=== PATIENT | female | born 1965 | race Caucasian/White ===

== ENCOUNTER → 2021-06-11 | Outpatient (CLI) | payer MEDICARE, MEDICAID ==
[~2021-06-11] MED LIST: ABILIFY 15MG TA15 MG PO; ASPIRIN 81M81 MG/TA2 PO; ATIVAN 1MG T1 MG/TAB PO; ATIVAN2 MG PO; BLUE-EMU LIDOC1 EACH TP; CLARITIN 1010 MG/TAB PO; CLEOCIN HCL300 MG PO; CLOZAPINE50 MG PO; COLESTID 1GM1 G PO; CRESTOR 10MG10 MG PO; EPA FISH OIL1 SGL PO; FARXIGA10 PO; GAS RELIEF125 MG PO; GLUCOPHAGE500 MG/TAB PO; IMODIUM 2MG CAPS2 MG PO; LAC-HYDRIN121 TP; LANTUS SOLOS100 U/ML SQ; LANTUS100 U/ML SQ; LASIX 40MG TABL40 MG PO; LOPRESSOR 225 MG/TAB PO; MIRALAX PA17 GM/Dose PO; MOBIC15 MG PO; MOTRIN 600600 MG/TAB PO; MYSOLINE 5050 MG/TAB PO; NAPROSYN500 MG PO; NEURONTIN100 MG/CAP PO; NOVOLOG 100U100 U/M1 SQ; NYAMYC100000 U/G TP; NYSTATIN POWDER30 GM TOP; OMEGA-3 1000 MG1 CAP PO; OMNICEF 300MG300 MG PO; OZEMPIC0.25 MG/0. SQ; PROZAC40 MG PO; RANEXA 500MG T500 MG PO; REMERON30 MG PO; SINGULAIR 110 MG/TAB PO; ULTRAM 50MG TAB50 MG PO; VITAMIN B11000 MCG/M IM; VITAMIND3 5000 PO; VOLTAREN GEL 1%1 TU TP; ZOFRAN 4MG T4 MG/TAB PO
[2021-06-11 11:02] LABS: BASO % 0.5 % (0.0-2.0); GRAN # 1.9 K/mm3 (1.4-6.5); GRAN % 49.8 % (42.2-75.2); HEMATOCRIT 34.7 % (37.0-47.0); HEMOGLOBIN 11.7 g/dl (12.5-16.0); LYMPH # 1.6 K/mm3 (1.2-3.4); LYMPH % 41.9 % (20.0-51.0); MEAN CELL VOLUME 95 fl (80.0-100.0); MEAN CORPUSCULAR HEMOGLOBIN 32 pg (27-31); MEAN CORPUSCULAR HGB CONC 34 g/dl (33.0-37.0); MONO # 0.3 K/mm3 (0.1-0.6); MONO % 7.5 % (1.7-9.3); PLATELET COUNT 190 K/mm3 (130-400); RED BLOOD COUNT 3.66 M/mm3 (4.10-5.30); REDCELL DISTRIBUTION WIDTH-CV 14.1 % (11.5-14.5)
== END ==
LOC: ZLAB.STJ 10:40
PROVIDERS: Internal Medicine
DX: E11.9 Type 2 diabetes mellitus without complications (principal); Z79.899 Other long term (current) drug therapy

== ENCOUNTER 2021-06-18 22:49 | Inpatient (IN) | payer MEDICARE, MEDICAID ==
[~2021-06-18] VITALS: Ht 175.3 cm; Wt 161.4 kg
[~2021-06-18 22:49] MED LIST changes: -BLUE-EMU LIDOC1 EACH TP; -IMODIUM 2MG CAPS2 MG PO; -LANTUS100 U/ML SQ; -MIRALAX PA17 GM/Dose PO; -NEURONTIN100 MG/CAP PO; -NYAMYC100000 U/G TP; -OMEGA-3 1000 MG1 CAP PO; -OMNICEF 300MG300 MG PO; -OZEMPIC0.25 MG/0. SQ; -ZOFRAN 4MG T4 MG/TAB PO
[2021-06-18 23:40] LABS: BASO % 0.2 % (0.0-2.0); GRAN # 4.2 K/mm3 (1.4-6.5); GRAN % 86.8 % (42.2-75.2); HEMATOCRIT 36.2 % (37.0-47.0); HEMOGLOBIN 12.5 g/dl (12.5-16.0); LYMPH # 0.6 K/mm3 (1.2-3.4); LYMPH % 11.5 % (20.0-51.0); MEAN CELL VOLUME 93 fl (80.0-100.0); MEAN CORPUSCULAR HEMOGLOBIN 32 pg (27-31); MEAN CORPUSCULAR HGB CONC 35 g/dl (33.0-37.0); MEAN PLATELET VOLUME 9.5 fl (7.4-10.4); MONO # 0.1 K/mm3 (0.1-0.6); MONO % 1.3 % (1.7-9.3); PLATELET COUNT 161 K/mm3 (130-400); RED BLOOD COUNT 3.89 M/mm3 (4.10-5.30)
[2021-06-18 23:49] LABS: COLLECTION METHOD CLEAN CATCH
[2021-06-18 23:52] LABS: ALBUMIN 4.2 gm/dL (3.5-5.0); BILIRUBIN,TOTAL 3.7 mg/dL (0.2-1.2); CALCIUM 9.3 mg/dL (8.4-10.2); CREATININE, serum 1.02 mg/dL (0.57-1.11); POTASSIUM 3.8 mmol/L (3.5-4.5); TOTAL PROTEIN 6.6 gm/dL (6.2-8.1)
[2021-06-18 23:58] LABS: MUCOUS Present (NOT PRESENT); PH 6 (5-8); URINE APPEARANCE Hazy (CLEAR/HAZY); URINE BACTERIA Moderate /hpf (NONE SEEN); URINE BILIRUBIN Negative (NEGATIVE); URINE BLOOD 2+ (NEGATIVE); URINE COLOR Yellow (YELLOW); URINE GLUCOSE 3+ (NEGATIVE); URINE KETONE Negative (NEGATIVE); URINE LEUKOCYTE ESTERASE 2+ (NEGATIVE); URINE NITRATE Negative (NEGATIVE); URINE PROTEIN(semi-quant) Negative (NEGATIVE); URINE UROBILINOGEN Negative (NEGATIVE)
[2021-06-19 00:11] LABS: TROPONIN-I 0.01 ng/mL (0.00-0.033); TSH w REFLEX 4.682 uIU/mL (0.350-4.940)
[2021-06-19 03:00] VITALS: BP 107/65; PULSE 91; TEMP 99.6
[2021-06-19] MEDS ORDERED: MIRALAX PA17 GM/Dose PO (03:44)
[2021-06-19] MEDS ORDERED: NOVOLOG 100U100 U/M1 SQ (03:44)
[2021-06-19] MEDS ORDERED: OZEMPIC0.25 MG/0. SQ (03:44)
[2021-06-19] MEDS ORDERED: VITAMIN B11000 MCG/M IM (03:45)
[2021-06-19] MEDS ORDERED: ULTRAM 50MG TAB50 MG PO (03:45)
[2021-06-19] MEDS ORDERED: VOLTAREN GEL 1%1 TU TP (03:45)
[2021-06-19] MEDS ORDERED: COLESTID 1GM1 G PO (03:45)
[2021-06-19] MEDS ORDERED: LANTUS100 U/ML SQ (03:46)
[2021-06-19] MEDS ORDERED: ZOFRAN 4MG T4 MG/TAB PO (03:46)
[2021-06-19] MEDS ORDERED: NEURONTIN100 MG/CAP PO (03:47)
[2021-06-19] MEDS ORDERED: IMODIUM 2MG CAPS2 MG PO (03:47)
[2021-06-19] MEDS ORDERED: NYAMYC100000 U/G TP (03:48)
[2021-06-19] MEDS ORDERED: GAS RELIEF125 MG PO (03:48)
[2021-06-19] MEDS ORDERED: NAPROSYN500 MG PO (03:50)
[2021-06-19] MEDS ORDERED: MYSOLINE 5050 MG/TAB PO (03:50)
[2021-06-19] MEDS ORDERED: PROZAC40 MG PO (03:50)
[2021-06-19] MEDS ORDERED: OMEGA-3 1000 MG1 CAP PO (03:51)
[2021-06-19] MEDS ORDERED: VITAMIND3 5000 PO (03:51)
[2021-06-19] MEDS ORDERED: CLARITIN 1010 MG/TAB PO (03:52)
[2021-06-19] MEDS ORDERED: ATIVAN2 MG PO (03:52)
[2021-06-19] MEDS ORDERED: ASPIRIN 81M81 MG/TA2 PO (03:53)
[2021-06-19] MEDS ORDERED: GLUCOPHAGE500 MG/TAB PO (03:54)
[2021-06-19] MEDS ORDERED: LOPRESSOR 225 MG/TAB PO (03:54)
[2021-06-19] MEDS ORDERED: RANEXA 500MG T500 MG PO (03:54)
[2021-06-19] MEDS ORDERED: FARXIGA10 PO (03:54)
[2021-06-19] MEDS ORDERED: SINGULAIR 110 MG/TAB PO (03:54)
[2021-06-19] MEDS ORDERED: REMERON30 MG PO (03:55)
[2021-06-19] MEDS ORDERED: ABILIFY 15MG TA15 MG PO (03:55)
[2021-06-19] MEDS ORDERED: CRESTOR 10MG10 MG PO (03:55)
[2021-06-19] MEDS ORDERED: CLOZAPINE50 MG PO (03:55)
[2021-06-19] MEDS ORDERED: LASIX 40MG TABL40 MG PO (03:55)
--- NOTE | 2021-06-19 06:45 | NUR ---
Report received, assumed care for day shift.
--- NOTE | 2021-06-19 07:23 | NUR ---
Patient arrived to the surgical flood at approximately 0445. Patient complained of back and flank pain as well as dark colored urine. Hospitalist in to the see that patient, orders entered. Abdominal CT was performed at 0520, confirmed kidney stone. Urology consult order entered. At 0550 tele called to inform this nurse that the patient was having bigeminal PVC's. Hospitalist was notified and ordered a lab draw for magnesium. Patient had complaints of pain, PRN tramadol was administered. Full body assessment and medication administration completed without difficulty. Patient is A&Ox3 pleasant. Patient had no other complaints throughout the shift. Call light within reach.
[2021-06-19 07:39] VITALS: BP 92/53; PULSE 80; TEMP 98.1
--- NOTE | 2021-06-19 08:00 | NUR ---
Assessment complete. A&Ox3. Denies pain/shortness of breath. Rating pain to back 7/10-described as constant ache-medications per order. Plan of care discussed for this shift to include meds/pain control/VS/NPO until Dr Augustine visits/calling for questions/concerns. Verbalizes understanding. Call light in reach. Will monitor.
--- NOTE | 2021-06-19 11:00 | NUR ---
Soaking Pit Operator contacted Jaime at [facility] and confirmed patient is a nursing home care resident. EMMIE faxed clinical updates. EMMIE also requested copy of patient's DPOA-HC. Jaime faxed EMMIE a copy, which EMMIE placed on patient's chart. DPOA-HC designates patient's brother, Mateo (ph#[phone]). EMMIE met with patient to discuss discharge planning. [facility] and sees Dr[facility] Metzger for primary care. [facility] manages patient's medications and patient reports she uses oxygen and no other DME. Patient receives assistance with ADLS as needed and plans to return to [facility] upon discharge. EMMIE contacted patient's DPOA-HC, Mateo and reviewed discharge plan. Discharge Plan: [facility]
--- NOTE | 2021-06-19 11:35 | NUR ---
Notified by PCT that patient is shaking uncontrolably. This nurse to room and patient noted to be shaking/shivering/tremors. States "I am cold and cant quit shaking. " VS currently stable. O2 saturation WNL on 3L/NC. Blood sugar 130s. States "I have this happen all the time and they give me Ativan for it." Noted to have Ativan ordered for anxiety. Given at this time per dr order. K Pad also given for lower back pain. Encouraged to slow breathing down as well-tachypneic. Verbalizes understanding.
[2021-06-19 11:36] VITALS: BP 132/90; PULSE 103; TEMP 98.8
--- NOTE | 2021-06-19 12:29 | NUR ---
Up to bathroom at this time. Patient states anxiety is better but C/O being dizzy. States morphine doesnt sit well with her-was asked prior to admin and said she received it before with no issues. Will hold off on using morphine for pain at this time.
--- NOTE | 2021-06-19 13:00 | NUR ---
Dr Denson and team at [facility] for rounds.
--- NOTE | 2021-06-19 13:33 | NUR ---
Initial visit; Patient thanked [employer] for looking in on her and keeping her in [employer]'s prayers.
[2021-06-19 15:24] VITALS: BP 119/94; PULSE 105; TEMP 102.3
--- NOTE | 2021-06-19 15:25 | NUR ---
PCT reports temp of 102.5. Blankets removed and tylenol given. Will reassess in one hour.
[2021-06-19 16:30] VITALS: TEMP 100
--- NOTE | 2021-06-19 18:36 | NUR ---
Called with c/o pain to lower back-rating pain 7/10 on pain scale-tramadol given per dr order. Will monitor.
--- NOTE | 2021-06-19 20:00 | NUR ---
PATIENT IS A&O. NOTED TEMP OF 100.0 AND HR OF 105. PATIENT ADMITED FOR UROSEPSIS. PATIENT ASYMPTOMATIC. GAVE PRN TYLENOL WITH HS MEDS. ALL OTHER VSS ON TELE. IV FLUIDS AND IV ROCEPHIN INFUSING INTO RIGHT HAND IV VIA PUMP. NO C/O N/V. TOLERATING ADA DIET. BS WAS 148, NO SSI REQUIRED. PATIENT REQUESTING ATIVAN BEFORE BED, GIVEN. HEAD TO TOE ASSESSMENT COMPLETE. NO OTHER NEEDS AT THIS TIME. PATIENT INDEPENDENT IN ROOM. CALL LIGHT IN REACH. TURNED LIGHTS DOWN. PATIENT GOING TO BED.
[2021-06-19 20:52] VITALS: BP 144/67; PULSE 82; TEMP 98.4
[2021-06-20] VITALS (7 sets, daily range): BP systolic 104–140; BP diastolic 43–65; PULSE 80–106; TEMP 97.8–99.7
--- NOTE | 2021-06-20 06:45 | NUR ---
awake resting in bed, bedside shift report received from RITO Garcia
[2021-06-20 06:51] LABS: BASO % 0.3 % (0.0-2.0); GRAN # 5.4 K/mm3 (1.4-6.5); GRAN % 79.1 % (42.2-75.2); HEMOGLOBIN 10.9 g/dl (12.5-16.0); LYMPH # 0.9 K/mm3 (1.2-3.4); LYMPH % 13.5 % (20.0-51.0); MEAN CORPUSCULAR HEMOGLOBIN 32 pg (27-31); MEAN CORPUSCULAR HGB CONC 33 g/dl (33.0-37.0); MEAN PLATELET VOLUME 10.3 fl (7.4-10.4); MONO # 0.4 K/mm3 (0.1-0.6); MONO % 6.5 % (1.7-9.3); PLATELET COUNT 150 K/mm3 (130-400); RED BLOOD COUNT 3.38 M/mm3 (4.10-5.30); REDCELL DISTRIBUTION WIDTH-CV 14.8 % (11.5-14.5)
--- NOTE | 2021-06-20 07:11 | NUR ---
c/o back pain, lidocaine patch placed and medicated with tramadol 50mg po, full assessment completed, see interventions for further info, breakfast has been ordered, denies other needs
[2021-06-20 07:13] LABS: ALBUMIN 3.3 gm/dL (3.5-5.0); BILIRUBIN,TOTAL 3.2 mg/dL (0.2-1.2); CALCIUM 8.6 mg/dL (8.4-10.2); CREATININE, serum 1.11 mg/dL (0.57-1.11); POTASSIUM 3.7 mmol/L (3.5-4.5); TOTAL PROTEIN 6.3 gm/dL (6.2-8.1)
[2021-06-20 07:24] LABS: HEMATOCRIT 33.1 % (37.0-47.0)
[2021-06-20 07:26] LABS: MEAN CELL VOLUME 98 fl (80.0-100.0)
--- NOTE | 2021-06-20 09:29 | NUR ---
sitting up on side of bed, physical therapy in to work with patient, ambulated out in [place], during walk in [place] telemetry called and stated her heart rate was 140s, now she is back in bed and heart rate is high 90s, she was also c/o some shaking and asked to have her temp check, will follow up with this
--- NOTE | 2021-06-20 09:45 | NUR ---
resting in bed, has minimal shaking, Temp 100.9, will continue to monitor
--- NOTE | 2021-06-20 10:03 | NUR ---
RUBBER MILL TENDER in and assisting patient with getting up and into shower, medicated with tylenol 650mg po for Temp 100.9 and c/os headache
--- NOTE | 2021-06-20 10:33 | NUR ---
was up to shower and tolerated well, back in bed and telemetry on and IV fluids infusing, will rest now, heart rate 110s
--- NOTE | 2021-06-20 12:30 | NUR ---
resting in bed with eyes closed, awakens easily, continues to c/o some back pain, denies needs
--- NOTE | 2021-06-20 13:09 | NUR ---
Floor Tiling Professional faxed clinical updates to [facility].
--- NOTE | 2021-06-20 16:45 | NUR ---
resting in bed and appears to be sleeping, eyes closed, resp quiet and easy
--- NOTE | 2021-06-20 17:00 | NUR ---
c/o headache and medicated with tylenol 650mg, denies other needs
--- NOTE | 2021-06-20 18:50 | NUR ---
bedside shift report given to RITO Garcia
--- NOTE | 2021-06-20 20:00 | NUR ---
PATIENT IS A&O. VSS ON TELE. 02 AT 3L PER NC WITH SATS IN MID 90'S WHICH IS HER BASELINE. PATIENT C/O PAIN, GAVE PRN ULTRAM & TYLENOL PER REQUEST. PATIENT ALSO ASKING FOR HER PRN ATIVAN, GIVEN. NO C/O N/V. RIGHT HAND IV TO INT. TOLERATING ADA DIET. BS IS 104, NO SSI REQUIRED. HEAD TO TOE ASSESSMENT COMPLETE. CALL LIGHT IN REACH.
[2021-06-21 03:56] VITALS: BP 126/45; PULSE 46; TEMP 98.6
[2021-06-21 07:40] VITALS: BP 121/99; PULSE 95; TEMP 98.3
--- NOTE | 2021-06-21 08:32 | NUR ---
Pt assessment complete. Pt is sitting up in bed upon entry, she is A/O x4. Her breathing is even and unlabored on 3L O2 via NC. Pt states she chronically wears 3L O2 via NC during the day. Denies any increased SOB. Pt reports pain 10/10 to back, but would like to try Lidocaine patch before taking more PO pain medications. Denies any N/V, reports two loose stools overnight. No needs at this time. Call light within reach.
[2021-06-21 09:16] LABS: BASO % 0.3 % (0.0-2.0); GRAN # 2.9 K/mm3 (1.4-6.5); GRAN % 74.6 % (42.2-75.2); LYMPH # 0.8 K/mm3 (1.2-3.4); LYMPH % 19.9 % (20.0-51.0); MEAN CELL VOLUME 100 fl (80.0-100.0); MEAN CORPUSCULAR HGB CONC 32 g/dl (33.0-37.0); MEAN PLATELET VOLUME 10.1 fl (7.4-10.4); MONO # 0.2 K/mm3 (0.1-0.6); MONO % 4.9 % (1.7-9.3); PLATELET COUNT 146 K/mm3 (130-400); RED BLOOD COUNT 3.11 M/mm3 (4.10-5.30); REDCELL DISTRIBUTION WIDTH-CV 14.9 % (11.5-14.5)
[2021-06-21 09:23] LABS: HEMOGLOBIN 9.9 g/dl (12.5-16.0); MEAN CORPUSCULAR HEMOGLOBIN 32 pg (27-31)
[2021-06-21 09:40] LABS: BILIRUBIN,TOTAL 1.4 mg/dL (0.2-1.2); CALCIUM 8.5 mg/dL (8.4-10.2); CREATININE, serum 0.94 mg/dL (0.57-1.11); POTASSIUM 3.8 mmol/L (3.5-4.5); TOTAL PROTEIN 6.1 gm/dL (6.2-8.1)
[2021-06-21] MEDS ORDERED: BLUE-EMU LIDOC1 EACH TP (09:56)
[2021-06-21] MEDS ORDERED: OMNICEF 300MG300 MG PO (10:01)
[2021-06-21 11:54] VITALS: BP 129/54; TEMP 101.4
[2021-06-21 12:03] VITALS: TEMP 98.7
[2021-06-21 12:13] VITALS: BP 129/54; PULSE 95; TEMP 98.7
--- NOTE | 2021-06-21 13:23 | NUR ---
Report given to [facility] nurse. Discharge paperwork sent with staff. IV to R hand dc'd catheter tip intact. Pt wheeled out by [facility] staff member at this time.
--- NOTE | 2021-06-21 15:15 | NUR ---
SW informed that patient would be discharging on this day and would need assistance with setting up transporation to [facility]. SW contacted facility to staff to assist, dc documenation sent and transporation setup for 1pm on this day. Nothing further.
== END 2021-06-21 13:23 | DRG 871 ==
LOC: COL.ER 22:49 → SURG 06-19 01:59
PROVIDERS: Emergency Medicine; Nurse Practitioner Family; ADMIT Internal Medicine
DX: A41.9 Sepsis, unspecified organism (principal); I50.33 Acute on chronic diastolic (congestive) heart failure; N39.0 Urinary tract infection, site not specified; I42.1 Obstructive hypertrophic cardiomyopathy; J96.11 Chronic respiratory failure with hypoxia; Z68.42 Body mass index [BMI] 45.0-49.9, adult; R65.20 Severe sepsis without septic shock; I11.0 Hypertensive heart disease with heart failure; G89.29 Other chronic pain; M54.50 Low back pain, unspecified; R25.1 Tremor, unspecified; J44.9 Chronic obstructive pulmonary disease, unspecified; E03.9 Hypothyroidism, unspecified; F31.9 Bipolar disorder, unspecified; N20.0 Calculus of kidney; G47.33 Obstructive sleep apnea (adult) (pediatric); E66.01 Morbid (severe) obesity due to excess calories; F25.9 Schizoaffective disorder, unspecified; F41.9 Anxiety disorder, unspecified; E78.5 Hyperlipidemia, unspecified; E11.40 Type 2 diabetes mellitus with diabetic neuropathy, unspecified; B96.20 Unspecified Escherichia coli [E. coli] as the cause of diseases classified elsewhere; N83.9 Noninflammatory disorder of ovary, fallopian tube and broad ligament, unspecified; Z79.82 Long term (current) use of aspirin; Z79.4 Long term (current) use of insulin; Z88.0 Allergy status to penicillin; Z87.891 Personal history of nicotine dependence; Z23 Encounter for immunization
CPT/HCPCS: 99223-AI; 99232-AI; 99239; J0696; J1650; J1815; J2060; J2270; J3475; J7030; J7120; Q9967

== ENCOUNTER → 2021-06-30 | Outpatient (CLI) | payer MEDICARE, MEDICAID ==
[~2021-06-30] MED LIST changes: +BLUE-EMU LIDOC1 EACH TP; +CIPRO 500MG TA500 MG PO; +IMODIUM 2MG CAPS2 MG PO; +LANTUS100 U/ML SQ; +MIRALAX PA17 GM/Dose PO; +NEURONTIN100 MG/CAP PO; +NYAMYC100000 U/G TP; +OMEGA-3 1000 MG1 CAP PO; +OMNICEF 300MG300 MG PO; +OZEMPIC0.25 MG/0. SQ; +ZOFRAN 4MG T4 MG/TAB PO
[2021-06-30 16:31] LABS: BASO % 0.1 % (0.0-2.0); GRAN # 6.4 K/mm3 (1.4-6.5); GRAN % 72.6 % (42.2-75.2); HEMOGLOBIN 10.6 g/dl (12.5-16.0); LYMPH # 1.8 K/mm3 (1.2-3.4); LYMPH % 20.1 % (20.0-51.0); MEAN CELL VOLUME 93 fl (80.0-100.0); MEAN CORPUSCULAR HEMOGLOBIN 32 pg (27-31); MEAN CORPUSCULAR HGB CONC 34 g/dl (33.0-37.0); MEAN PLATELET VOLUME 9.6 fl (7.4-10.4); MONO # 0.6 K/mm3 (0.1-0.6); MONO % 6.5 % (1.7-9.3); PLATELET COUNT 288 K/mm3 (130-400); RED BLOOD COUNT 3.36 M/mm3 (4.10-5.30); REDCELL DISTRIBUTION WIDTH-CV 14.1 % (11.5-14.5)
[2021-06-30 16:32] LABS: HEMATOCRIT 31.1 % (37.0-47.0)
== END ==
LOC: ZLAB.STJ 15:37
PROVIDERS: Psychiatry & Neurology Psychiatry
DX: Z79.899 Other long term (current) drug therapy (principal)

== ENCOUNTER 2021-07-07 14:54 | Observation (INO) | payer MEDICARE, MEDICAID ==
[~2021-07-07] VITALS: Ht 182.9 cm; Wt 152.3 kg
[~2021-07-07 14:54] MED LIST changes: -CIPRO 500MG TA500 MG PO
[2021-07-07 15:36] LABS: COLLECTION METHOD CLEAN CATCH
[2021-07-07 15:36] LABS: BASO % 0.1 % (0.0-2.0); EOS % 0.1 % (0.0-4.0); GRAN # 7.1 K/mm3 (1.4-6.5); GRAN % 76.9 % (42.2-75.2); LYMPH # 1.3 K/mm3 (1.2-3.4); LYMPH % 14.3 % (20.0-51.0); MEAN CELL VOLUME 91 fl (80.0-100.0); MEAN CORPUSCULAR HEMOGLOBIN 32 pg (27-31); MEAN CORPUSCULAR HGB CONC 35 g/dl (33.0-37.0); MEAN PLATELET VOLUME 9.2 fl (7.4-10.4); MONO # 0.7 K/mm3 (0.1-0.6); MONO % 7.9 % (1.7-9.3); PLATELET COUNT 291 K/mm3 (130-400); RED BLOOD COUNT 3.17 M/mm3 (4.10-5.30); REDCELL DISTRIBUTION WIDTH-CV 14.8 % (11.5-14.5)
[2021-07-07 15:41] LABS: HEMATOCRIT 28.7 % (37.0-47.0)
[2021-07-07 15:46] LABS: PH 6 (5-8); SQUAMOUS EPITHELIAL 0-2 /hpf (0-10); URINE APPEARANCE Clear (CLEAR/HAZY); URINE BACTERIA Moderate /hpf (NONE SEEN); URINE BILIRUBIN Negative (NEGATIVE); URINE BLOOD 1+ (NEGATIVE); URINE COLOR Straw (YELLOW); URINE GLUCOSE 3+ (NEGATIVE); URINE KETONE Negative (NEGATIVE); URINE LEUKOCYTE ESTERASE 2+ (NEGATIVE); URINE NITRATE Negative (NEGATIVE); URINE PROTEIN(semi-quant) Negative (NEGATIVE); URINE RBC 0-2 /hpf (0-2); URINE UROBILINOGEN Negative (NEGATIVE)
[2021-07-07 15:56] LABS: ALBUMIN 3.7 gm/dL (3.5-5.0); BILIRUBIN,TOTAL 2.2 mg/dL (0.2-1.2); CALCIUM 8.7 mg/dL (8.4-10.2); CREATININE, serum 1.62 mg/dL (0.57-1.11); POTASSIUM 3.8 mmol/L (3.5-4.5); TOTAL PROTEIN 7.1 gm/dL (6.2-8.1)
[2021-07-07 19:33] VITALS: BP 143/63; PULSE 92; TEMP 98.5
--- NOTE | 2021-07-07 20:06 | NUR ---
PT SITTING AT EDGE OF BED, BROTHER AT BEDSIDE. IS ALERT AND ORIENTED X4. HAS CPAP FROM HOME AT BEDSIDE. IVF CONNECTED TO LFA, INFUSING WITHOUT PROBLEM. PT UP TOLERATED, VOIDING CLOUDY YELLOW URINE. DENIES PAIN OR BURNING WITH URINATION. PT AWARE SHE WILL BE NPO AT MIDNIGHT. MEDICATED WITH TRAMADOL 50MG PO AT THIS TIME.
[2021-07-07 23:30] VITALS: BP 114/49; PULSE 72; TEMP 98
[2021-07-08] VITALS (16 sets, daily range): BP systolic 106–145; BP diastolic 43–88; PULSE 38–92; TEMP 97.6–98.7
--- NOTE | 2021-07-08 02:02 | NUR ---
MEDICATED WITH TRAMADOL 50MG PO FOR BACK PAIN. PT HAS BEEN UP VOIDING HAZY YELLOW URINE. INDEPENDENT IN ROOM.
--- NOTE | 2021-07-08 06:00 | NUR ---
PT AWAKE, HAS BEEN NPO SINCE MIDNIGHT FOR SURGERY TODAY.
[2021-07-08 06:05] LABS: BASO % 0.2 % (0.0-2.0); GRAN # 4.2 K/mm3 (1.4-6.5); GRAN % 66.3 % (42.2-75.2); LYMPH # 1.3 K/mm3 (1.2-3.4); LYMPH % 21.4 % (20.0-51.0); MEAN CELL VOLUME 95 fl (80.0-100.0); MEAN CORPUSCULAR HGB CONC 33 g/dl (33.0-37.0); MEAN PLATELET VOLUME 9.8 fl (7.4-10.4); MONO # 0.7 K/mm3 (0.1-0.6); MONO % 11.5 % (1.7-9.3); PLATELET COUNT 262 K/mm3 (130-400); REDCELL DISTRIBUTION WIDTH-CV 15.5 % (11.5-14.5)
[2021-07-08 06:11] LABS: HEMATOCRIT 27.5 % (37.0-47.0); MEAN CORPUSCULAR HEMOGLOBIN 31 pg (27-31)
[2021-07-08 06:21] LABS: ALBUMIN 3.2 gm/dL (3.5-5.0); BILIRUBIN,TOTAL 1.5 mg/dL (0.2-1.2); CALCIUM 8.4 mg/dL (8.4-10.2); CREATININE, serum 1.32 mg/dL (0.57-1.11); POTASSIUM 3.8 mmol/L (3.5-4.5); TOTAL PROTEIN 6.4 gm/dL (6.2-8.1)
[2021-07-08] MEDS ORDERED: CIPRO 500MG TA500 MG PO (08:53)
--- NOTE | 2021-07-08 09:49 | NUR ---
The patient's status was downgraded to observation. EMMIE and Marialuisa, web site specialist, met with the patient to notify. The patient verbalized understanding. EMMIE presented and read the Medicare Outpatient Observation Form outloud to the patient. The patient signed the form. EMMIE provided her with a copy. EMMIE then followed up with the patient to discuss discharge plan. The patient resides at [facility] in long-term care. Her PCP is Dr. Linda Metzger and her DPOA-HC is in EMR and it designates her brother, Mateo (ph#[phone]). The patient states that she plans on returning back to [facility] upon discharge. EMMIE contacted and faxed updates to Jaime at [facility]. EMMIE contacted and reviewed the above with the patient's brother, Mateo. Mateo confirms the the plan is for the patient to return back to [facility] upon discharge. *Discharge plan: [facility] L[facility]*
--- NOTE | 2021-07-08 10:23 | NUR ---
Initial visit; Patient thanked [employer] for looking in on her and offering God's blessings. Patient states she is doing well.
--- NOTE | 2021-07-08 16:37 | NUR ---
PT TAKEN TO SURGERY @ THIS TIME. O2 ON @ 2.5L. IVF INFUSING.
--- NOTE | 2021-07-08 18:20 | NUR ---
PT HAS ARRIVED BACK TO ROOM FROM SURGERY, IS A&OX3, DENIES PAIN OR NAUSEA. IVF INFUSING. OXYGEN ON @ 3L NC, RESPIRATIONS UNLABORED. PT IS GIVEN ICE WATER TO DRINK ET ASSISTED TO ORDER DINNER.
--- NOTE | 2021-07-08 21:10 | NUR ---
Pt. sitting up in bed. Pt. is A&OX3, assessment complete. IV to lt. forearm patent, IV fluids infusing per orders. Pt. reports pain at a 5 on pain scale, gave pain meds per orders. Pt. denies further needs, call light within reach.
[2021-07-09 04:21] VITALS: BP 123/78; PULSE 78; TEMP 98.1
--- NOTE | 2021-07-09 07:24 | NUR ---
PT RESTING QUIETLY IN BED, RESPIRATIONS UNLABORED ON 3L O2 NC. PT HAS BEEN UP TO BR WITH SBA, URINE IS YELLOW ET CLEAR WITH OCCASIONAL SEDIMENT. IVF INFUSING. CALL LIGHT WITHIN REACH.
[2021-07-09 07:44] VITALS: BP 138/66; PULSE 79; TEMP 97.9
--- NOTE | 2021-07-09 09:17 | NUR ---
PT IS PLEASANT, HAS BEEN WALKING IN HALLS WITH PHYSICAL THERAPY. IVF BAG COMPLETED, IV SALINE LOCKED R/T PT DISCHARGING TODAY. OXYGEN REMAINS ON @ 3L NC.
--- NOTE | 2021-07-09 10:09 | NUR ---
PT WILL DISCHARGE BACK TO [facility] @ 11. PERIPHERAL IV DCED ET TELEMETRY REMOVED. PT DRESSES SELF. STENT INSERTED IN SURGERY WILL NEED TO BE REMOVED THIS WEEKEND PER DISCHARGE INSTRUCTIONS.
--- NOTE | 2021-07-09 10:34 | NUR ---
The patient is to discharge today, 07/09, back to [facility] for long-term care. Transportation was scheduled at 1100, via [facility]. SW informed the patient's RN of the time. SW attempted to contact and update the patient's brother, Mateo. SW left him a voicemail. No additional needs at this time.
--- NOTE | 2021-07-09 11:16 | NUR ---
REPORT CALLED TO NURSE @ [facility]. PT LEFT WITH STAFF @ 1451.
== END 2021-07-09 11:05 | disposition home or self-care (01) ==
LOC: COL.ER 14:54 → SURG 17:07
PROVIDERS: Emergency Medicine; Family Medicine; ADMIT Internal Medicine
DX: N13.2 Hydronephrosis with renal and ureteral calculous obstruction (principal); G47.33 Obstructive sleep apnea (adult) (pediatric); N17.9 Acute kidney failure, unspecified; E87.1 Hypo-osmolality and hyponatremia; E78.5 Hyperlipidemia, unspecified; I42.1 Obstructive hypertrophic cardiomyopathy; I11.0 Hypertensive heart disease with heart failure; I50.30 Unspecified diastolic (congestive) heart failure; J44.9 Chronic obstructive pulmonary disease, unspecified; E11.9 Type 2 diabetes mellitus without complications; J96.11 Chronic respiratory failure with hypoxia; E11.40 Type 2 diabetes mellitus with diabetic neuropathy, unspecified; E03.9 Hypothyroidism, unspecified; E66.01 Morbid (severe) obesity due to excess calories; M54.9 Dorsalgia, unspecified; D64.9 Anemia, unspecified; R19.09 Other intra-abdominal and pelvic swelling, mass and lump; F25.0 Schizoaffective disorder, bipolar type; Z99.89 Dependence on other enabling machines and devices; Z79.84 Long term (current) use of oral hypoglycemic drugs; Z87.891 Personal history of nicotine dependence; Z68.45 Body mass index [BMI] 70 or greater, adult; Z79.890 Hormone replacement therapy; Z79.899 Other long term (current) drug therapy
CPT/HCPCS: 99222-AI; 99239; C1769; C2617; G0378; J0690; J0744; J1644; J1815; J2270; J2370; J2704; J3010; J7030; Q9967

== ENCOUNTER → 2021-07-30 | Outpatient (CLI) | payer MEDICARE, MEDICAID ==
[~2021-07-30] MED LIST changes: +CIPRO 500MG TA500 MG PO
[2021-07-30 11:39] LABS: BASO % 0.4 % (0.0-2.0); GRAN # 2.2 K/mm3 (1.4-6.5); GRAN % 49.1 % (42.2-75.2); HEMOGLOBIN 11.7 g/dl (12.5-16.0); LYMPH % 43.8 % (20.0-51.0); MEAN CELL VOLUME 97 fl (80.0-100.0); MEAN CORPUSCULAR HEMOGLOBIN 32 pg (27-31); MEAN CORPUSCULAR HGB CONC 33 g/dl (33.0-37.0); MEAN PLATELET VOLUME 10.4 fl (7.4-10.4); MONO # 0.3 K/mm3 (0.1-0.6); MONO % 6.5 % (1.7-9.3); PLATELET COUNT 191 K/mm3 (130-400); RED BLOOD COUNT 3.68 M/mm3 (4.10-5.30); REDCELL DISTRIBUTION WIDTH-CV 16.4 % (11.5-14.5)
[2021-07-30 11:40] LABS: HEMATOCRIT 35.8 % (37.0-47.0)
== END ==
LOC: ZLAB.STJ 11:27
PROVIDERS: Psychiatry & Neurology Psychiatry
DX: Z79.899 Other long term (current) drug therapy (principal)

== ENCOUNTER → 2021-08-28 | Outpatient (CLI) | payer MEDICARE, MEDICAID ==
[2021-08-28 21:09] LABS: BASO % 0.5 % (0.0-2.0); EOS # 0.1 K/mm3 (0.0-0.7); EOS % 1.6 % (0.0-4.0); GRAN # 2.7 K/mm3 (1.4-6.5); GRAN % 47.8 % (42.2-75.2); HEMATOCRIT 37.3 % (37.0-47.0); HEMOGLOBIN 12.4 g/dl (12.5-16.0); LYMPH # 2.4 K/mm3 (1.2-3.4); LYMPH % 43.8 % (20.0-51.0); MEAN CELL VOLUME 97 fl (80.0-100.0); MEAN CORPUSCULAR HEMOGLOBIN 32 pg (27-31); MEAN CORPUSCULAR HGB CONC 33 g/dl (33.0-37.0); MEAN PLATELET VOLUME 10.2 fl (7.4-10.4); MONO # 0.3 K/mm3 (0.1-0.6); MONO % 5.9 % (1.7-9.3); PLATELET COUNT 221 K/mm3 (130-400); RED BLOOD COUNT 3.83 M/mm3 (4.10-5.30); REDCELL DISTRIBUTION WIDTH-CV 15.1 % (11.5-14.5)
== END ==
LOC: ZCOL.LAB 19:37
PROVIDERS: Internal Medicine
DX: R68.89 Other general symptoms and signs (principal)

== ENCOUNTER → 2021-09-10 | Outpatient (CLI) | payer MEDICARE, MEDICAID | LOC: ZLAB.STJ 11:44 | DX: Z01.89 Encounter for other specified special examinations (principal) ==

== ENCOUNTER → 2021-09-27 | Outpatient (CLI) | payer MEDICARE, MEDICAID ==
[2021-09-27 13:56] LABS: BASO % 0.4 % (0.0-2.0); GRAN # 2.6 K/mm3 (1.4-6.5); GRAN % 52.2 % (42.2-75.2); HEMATOCRIT 37.5 % (37.0-47.0); HEMOGLOBIN 12.5 g/dl (12.5-16.0); LYMPH % 39.8 % (20.0-51.0); MEAN CELL VOLUME 98 fl (80.0-100.0); MEAN CORPUSCULAR HEMOGLOBIN 33 pg (27-31); MEAN CORPUSCULAR HGB CONC 33 g/dl (33.0-37.0); MEAN PLATELET VOLUME 10.2 fl (7.4-10.4); MONO # 0.4 K/mm3 (0.1-0.6); MONO % 7.2 % (1.7-9.3); PLATELET COUNT 197 K/mm3 (130-400); RED BLOOD COUNT 3.84 M/mm3 (4.10-5.30); REDCELL DISTRIBUTION WIDTH-CV 14.5 % (11.5-14.5)
== END ==
LOC: ZCOL.LAB 13:05
PROVIDERS: Internal Medicine
DX: Z79.899 Other long term (current) drug therapy (principal)

== ENCOUNTER → 2021-10-24 | Outpatient (CLI) | payer MEDICARE, MEDICAID ==
[2021-10-24 18:23] LABS: BASO % 0.4 % (0.0-2.0); GRAN # 3.1 K/mm3 (1.4-6.5); GRAN % 57.7 % (42.2-75.2); HEMATOCRIT 37.2 % (37.0-47.0); HEMOGLOBIN 12.5 g/dl (12.5-16.0); LYMPH # 1.9 K/mm3 (1.2-3.4); LYMPH % 34.7 % (20.0-51.0); MEAN CELL VOLUME 97 fl (80.0-100.0); MEAN CORPUSCULAR HEMOGLOBIN 33 pg (27-31); MEAN CORPUSCULAR HGB CONC 34 g/dl (33.0-37.0); MEAN PLATELET VOLUME 10.7 fl (7.4-10.4); MONO # 0.4 K/mm3 (0.1-0.6); PLATELET COUNT 193 K/mm3 (130-400); RED BLOOD COUNT 3.82 M/mm3 (4.10-5.30)
== END ==
LOC: ZLAB.STJ 17:10
PROVIDERS: Psychiatry & Neurology Psychiatry
DX: F25.0 Schizoaffective disorder, bipolar type (principal)

== ENCOUNTER → 2023-03-16 | Outpatient (CLI) | payer MEDICARE, MEDICAID ==
[~2023-03-16] MED LIST changes: +CAPLYTA42 MG PO; +CARDIZEM CD 12120 MG PO; +CRESTOR20 MG PO; +HYDROCORTISONE30 G3 TP; +INSLANT SQ; +MIRALAX119G PO; +OZEMPIC2 MG/0.75 SQ; +PERCOCET 325 MG1 TA2 PO
== END ==
LOC: COL.RAD 14:37
DX: G43.E09 Chronic migraine with aura, not intractable, without status migrainosus (principal)
CPT/HCPCS: Q9967

== ENCOUNTER → 2023-03-31 | Outpatient (CLI) | payer MEDICARE, MEDICAID ==
[~2023-03-31] MED LIST changes: +NS IV SCH; +SINCALIDE IV SCH
== END ==
LOC: COL.RAD 09:25
DX: R10.31 Right lower quadrant pain (principal)
CPT/HCPCS: A9537-JZ; J2805